=== PATIENT | female | born 1950 | race Caucasian/White ===

== ENCOUNTER → 2023-12-07 08:58 | Outpatient (REF) | payer MEDICARE, OTHER, SELFPAY | LOC: RAD 08:58 | PROVIDERS: ATTENDING PHYSICIAN Family Medicine | DX: M25.552 Pain in left hip (principal) | CPT/HCPCS: 73502 ==

== ENCOUNTER → 2023-12-19 10:10 | Outpatient (REF) | payer MEDICARE, OTHER, SELFPAY | LOC: WDC 10:10 | PROVIDERS: ATTENDING PHYSICIAN Family Medicine | DX: Z12.31 Encounter for screening mammogram for malignant neoplasm of breast (principal) | CPT/HCPCS: 77063; 77067 ==

== ENCOUNTER 2024-07-25 06:14 | Day surgery (SDC) | payer MEDICARE, OTHER, SELFPAY ==
[2024-06-27 11:54] LABS: Hematocrit 42.9 % (37.0-47.0); Hemoglobin 14.3 g/dL (12.0-16.0); Mean Corp Hgb Conc. 33.3 g/dL (33.0-37.0); Mean Corpuscular Hgb 30.8 pg (27.0-31.0); Mean Corpuscular Volume 92.5 fL (81.0-99.0); Mean Platelet Volume 9.6 fL (7.4-10.4); Platelet Count 247 10^3/uL (130-400); Red Blood Cell Count 4.64 10^6/uL (4.20-5.40); Red Cell Dist. Width 12.6 % (11.5-14.5); White Blood Cell Count 4.8 10^3/uL (4.8-10.8)
[2024-06-27 12:40] LABS: ALT (SGPT) 20 U/L (0-35); AST (SGOT) 27 U/L (14-36); Albumin 4.1 g/dl (3.5-5.0); Alkaline Phosphatase 72 U/L (38-126); Blood Urea Nitrogen 20 mg/dl (7-17); Calcium 9.4 mg/dl (8.4-10.2); Carbon Dioxide 29 mmol/L (22-30); Chloride 103 mmol/L (98-107); Glucose 94 mg/dl (70-99); Potassium 4.3 mmol/L (3.5-5.1); Sodium 140 mmol/L (135-145); Total Bilirubin 0.8 mg/dl (0.2-1.3); Total Protein 7.3 g/dl (6.3-8.2); eGFR > 60.00
[2024-06-27 14:14] VITALS: BMI 21.3
[2024-06-27 14:41] LABS: Glycohemoglobin (HgbA1c) 5.6 % (4.0-5.6)
--- NOTE | 2024-07-12 10:48 | VNURNOTE ---
Patient is scheduled for an elective L THR on 07/25/24- she is a same day patient with Dr Martinez. Spoke with patient prior to surgery. Introduced role of [facility] Liaison. Patient reports that she lives with her spouse in a MULTI story home.
There is 1 step to enter and a flight of steps to the second floor.
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 She has a raised toilet seat, cane and rolling walker.
PCP is Dr Carmen Bojorquez.
Discussed [facility] joint protocol and post surgical plans.
Reviewed that she will have [facility] services initially and will then start outpatient PT.
Patient selects [facility] for home care needs and will go [facility] for outpatient PT. Scheduled for 07/28/24.
Patient is in agreement with plan and states that her spouse will be home with her. Advised to bring RW with her day of surgery. Referral placed in [facility].
Plan: [facility] per [facility] joint protocol then outpt PT on 07/28/24
[2024-07-19 12:35] VITALS: BMI 21.3
[2024-07-25] VITALS (17 sets, daily range): BP systolic 108–178; BP diastolic 64–91; PULSE 51; O2SAT 97–98
--- NOTE | 2024-07-25 07:08 | W.DS.TRANS ---
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
-
Discharge Instructions:
Sleep Apnea Risk Low
Discharge Diagnosis/Procedures L MARILYN Reaves 07/25/24
Diet As tolerated
Activity With Walker
Additional Activity hip precautions
Driving Restrictions No driving
Bathing Restrictions OK to Shower
Other Services PT
Instructions:
Stand-Alone Forms: SDS Total Hip and Knee D/C
Changes to Home Medications: Yes
Discharge Medications:
DC Medications w/original date entered in [email or web address]
atorvastatin 20 mg tablet 20 mg PO HS 05/14/18
losartan 25 mg tablet 25 mg PO HS 07/19/24
metoprolol succinate 25 mg tablet,extended release 24 hr 12.5 mg PO HS 07/19/24
acetaminophen 325 mg tablet (Tylenol) 650 mg (2 x 325 mg) PO QID #1 tab 07/25/24
aspirin 325 mg tablet 325 mg PO DAILY blood clot prevention #1 tab 07/25/24
celecoxib 100 mg capsule 100 mg PO BID Anti-inflammatory #14 caps 07/25/24
dexamethasone 4 mg tablet 4 mg PO BID inflammation #6 tabs 07/25/24
docusate sodium 100 mg capsule (Colace) 100 mg PO BID stool softner #1 cap 07/25/24
magnesium hydroxide 400 mg/5 mL oral suspension (Milk of Magnesia) 30 ml PO HS PRN Constipation #1 mL 07/25/24
ondansetron 4 mg disintegrating tablet 4 mg PO Q6H PRN n/v #20 tabs 07/25/24
oxycodone 5 mg tablet 5 mg PO Q6H PRN 1 tab moderate pain, 2 tabs severe pain #30 tabs 07/25/24
sennosides 8.6 mg tablet (Senokot) 17.2 mg (2 x 8.6 mg) PO BID laxative #2 tabs 07/25/24
Home Medication Changes
acetaminophen 325 mg tablet (Tylenol) 650 mg (2 x 325 mg) PO QID #1 tab 07/25/24
aspirin 325 mg tablet 325 mg PO DAILY blood clot prevention #1 tab 07/25/24
celecoxib 100 mg capsule 100 mg PO BID Anti-inflammatory #14 caps 07/25/24
dexamethasone 4 mg tablet 4 mg PO BID inflammation #6 tabs 07/25/24
docusate sodium 100 mg capsule (Colace) 100 mg PO BID stool softner #1 cap 07/25/24
magnesium hydroxide 400 mg/5 mL oral suspension (Milk of Magnesia) 30 ml PO HS PRN Constipation #1 mL 07/25/24
ondansetron 4 mg disintegrating tablet 4 mg PO Q6H PRN n/v #20 tabs 07/25/24
oxycodone 5 mg tablet 5 mg PO Q6H PRN 1 tab moderate pain, 2 tabs severe pain #30 tabs 07/25/24
sennosides 8.6 mg tablet (Senokot) 17.2 mg (2 x 8.6 mg) PO BID laxative #2 tabs 07/25/24
Pending Results: No
[2024-07-25] MEDS: TYLENOL 650 MG PO (07:11)
[2024-07-25] MEDS: CELEBREX 200 MG PO (07:11)
[2024-07-25] MEDS: NORMOSOL-R/PLASMALYTE-A 1000 IV (07:18)
[2024-07-25] MEDS: ANCEF 5 IV (12:16)
--- NOTE | 2024-07-25 13:28 | PTCARENOTE ---
Patient still has no dorsiflexion when PT came up to see her. Patient had been numb from the block when picking her up from PACU and slowly has returned feeling down to the ankle. Although patient can feel down to the ankle she can not dorsiflex and
she can only lightly feel touching. Positive pulse to the L foot. Dr. Martinez notified and over to the bedside to see patient and said to be in touch when dorsiflexion returns and to keep him updated on the situation. PT notified that I will also
be in touch when the dorsiflexion returns and what the plan is.
--- NOTE | 2024-07-25 13:36 | W.PN.UPDATE ---
Addendum entered and electronically signed by Nabil Martinez MD 07/25/24 13:58:
Also could be secondary to extravasation of the 30 mL of 1/4 percent Marcaine injected about the surgical site for postoperative pain management. Will continue observation.
Original Note:
Update Note
Progress Note Update
Patient examined in same-day surgery. Patient noted by nursing staff to have difficulty dorsiflexing the left foot/ankle. On physical examination, there is no significant hematoma about the left hip and there is decreased sensation over the dorsum
of the left foot and patient is unable to extend the anterior tibialis and extensor hallucis longus. Her hip replacement procedure was routine and sciatic nerve was not directly visualized and was well protected during the case. 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
result of neuropraxia and I would expect resolution of symptoms, this may occur over hours or be protracted. Patient informed.
--- NOTE | 2024-07-25 14:05 | SUR.OPER ---
Patient OOB to the commode and her sacral area looks swollen, +1 edema, no bruising or tenderness. Roderick Haley notified and is going to come see patient.
--- NOTE | 2024-07-25 14:11 | PTCARENOTE ---
Patient seen a second time by Dr. Martinez. Per Dr. Martinez patient should be seen by PT and to try and do PT. Patient is still unable to dorsiflex at the present time. Dr. Martinez said that patient can still go home today. PT notified to come up.
Will monitor patient.
--- NOTE | 2024-07-25 14:27 | PTCARENOTE ---
Roderick Haley saw patient and talked to her and her extensively at the bedside and did several tests to test her strength ect. Anesthesia felt that her sacrum looked fine and no issues were identified. Awaiting PT to see patient. Report
passed onto Evelyn IVAN.
--- NOTE | 2024-07-25 14:42 | PTCARENOTE ---
Patient was dizzy with first PT session and put back to bed and given 500 ml Normosol. Patient got OOB the second time with PT and became very dizzy and a second bag of 500 ml of Normosol was hung. Evelyn IVAN to notify Dr. Martinez. Will monitor
patient.
[2024-07-25] MEDS: ProAmatine 5 MG PO (15:12)
[2024-07-25] MEDS: DECADRON 6 MG IV (15:13)
== END 2024-07-25 16:40 | disposition home or self-care (01) ==
LOC: SDS 06:14
PROVIDERS: ATTENDING PHYSICIAN Specialist; FAMILY PHYSICIAN Family Medicine; REFERRING PHYSICIAN Internal Medicine Cardiovascular Disease
DX: M16.12 Unilateral primary osteoarthritis, left hip (principal); I42.8 Other cardiomyopathies; I44.7 Left bundle-branch block, unspecified; I10 Essential (primary) hypertension
CPT/HCPCS: 27130; 36415; 73502; 80053; 83036; 85027; 87070; 97163; 97530; C1713; C1776

== ENCOUNTER 2024-08-23 09:58 | Outpatient (RCR) | payer MEDICARE, OTHER, SELFPAY | END 2024-08-23 23:59 | disposition home or self-care (01) | LOC: RPT 09:58 | PROVIDERS: ATTENDING PHYSICIAN Specialist; FAMILY PHYSICIAN Family Medicine | DX: Z47.1 Aftercare following joint replacement surgery (principal); M16.12 Unilateral primary osteoarthritis, left hip (principal); Z73.6 Limitation of activities due to disability | CPT/HCPCS: 97010; 97110; 97161; 97530 ==

== ENCOUNTER 2024-08-31 12:08 | Outpatient (RCR) | payer MEDICARE, OTHER, SELFPAY | END 2024-08-31 23:59 | disposition home or self-care (01) | LOC: RPT 12:08 | PROVIDERS: ATTENDING PHYSICIAN Specialist; FAMILY PHYSICIAN Family Medicine | DX: M16.12 Unilateral primary osteoarthritis, left hip (principal); Z73.6 Limitation of activities due to disability; M25.562 Pain in left knee | CPT/HCPCS: 97110; 97530 ==

== ENCOUNTER → 2024-10-28 13:57 | Outpatient (REF) | payer MEDICARE, OTHER, SELFPAY | LOC: RAD 13:57 | PROVIDERS: ATTENDING PHYSICIAN Nurse Practitioner Adult Health; FAMILY PHYSICIAN Family Medicine | DX: R05.1 Acute cough (principal) | CPT/HCPCS: 71046 ==

== ENCOUNTER → 2024-11-29 13:43 | Outpatient (REF) | payer MEDICARE, OTHER, SELFPAY | LOC: WDC 13:43 | PROVIDERS: ATTENDING PHYSICIAN Family Medicine | DX: Z12.31 Encounter for screening mammogram for malignant neoplasm of breast (principal) | CPT/HCPCS: 77063; 77067 ==